=== PATIENT | male | born 1950 | race Caucasian/White ===

== ENCOUNTER 2025-11-07 11:17 | Emergency (ER) | payer BC, OTHER ==
[2025-11-07] MEDS ORDERED: Lidocaine 1% w/Epinephrine 1:200K 30 ML VIAL ONE (12:41)
== END 2025-11-07 13:15 | disposition home or self-care (01) ==
LOC: CSHERS 11:17
DX: S50.852A Superficial foreign body of left forearm, initial encounter (principal); I10 Essential (primary) hypertension; W45.3XXA Fishing hook entering through skin, initial encounter; Z23 Encounter for immunization
CPT/HCPCS: 90471; 90715